=== PATIENT | female | born 1995 | race African-American/Black ===

== ENCOUNTER 2019-04-20 15:31 | Emergency (ER) | payer BC, MEDICAID ==
[~2019-04-20] VITALS: Ht 177.8 cm; Wt 68.0 kg
[~2019-04-20 15:31] MED LIST: BISM262T18 PO; LANS30CA54 PO
--- NOTE | 2019-04-20 15:55 | NUR ---
PT CAME IN TH ED C/O NAUSEA AND VOMITING X 1 WEEK. PT AAOX4, VSS, BREATHING EVEN AND UNLABORED W/ NO ACUTE DISTRESS NOTED. PT CONNECTED TO THE MONITOR.
--- NOTE | 2019-04-20 15:55 | NUR ---
BLOOD DRAWN AND SENT TO LAB.
[2019-04-20] MEDS ORDERED: ONDANSETRON HCL/PF 4 MG/2 ML VIAL IVP ONE (16:00)
[2019-04-20] MEDS ORDERED: IV NS 0.9% 1,000 ML BAG IV ONE (16:00)
[2019-04-20] MEDS ORDERED: ONDANSETRON HCL/PF 4 MG/2 ML VIAL ONE (16:03)
[2019-04-20 16:15] LABS: CALCIUM, SERUM 9.4 mg/dL (8.5-10.1); CREATININE 0.7 mg/dL (0.6-1.3); POTASSIUM 3.9 mmol/L (3.5-5.1)
[2019-04-20 16:23] LABS: ALBUMIN 4.5 g/dL (3.4-5.0); BILIRUBIN,DIRECT 0.2 mg/dL (0.0-0.2); BILIRUBIN,TOTAL 1.2 mg/dL (0.2-1.0); TOTAL PROTEIN, SERUM 8.3 g/dL (6.4-8.2)
[2019-04-20 16:25] LABS: BASOPHILS % (AUTO) 0.4 % (0.0-2.0); EOSINOPHILS % (AUTO) 2.3 % (0.0-6.0); HEMATOCRIT 42 % (33-45); HEMOGLOBIN 14.1 g/dL (11.5-14.8); LYMPHOCYTES # (AUTO) 1.7 /CMM (0.8-4.8); LYMPHOCYTES % (AUTO) 22.8 % (20.0-44.0); MEAN CORPUSCULAR HGB CONC 34 g/dl (31.0-36.0); MEAN CORPUSCULAR VOLUME 89 fL (82-100); MONOCYTES # (AUTO) 0.4 /CMM (0.1-1.30); MONOCYTES % (AUTO) 5.7 % (2.0-12.0); NEUTROPHILS # (AUTO) 5.2 /CMM (1.8-8.9); NEUTROPHILS % (AUTO) 68.8 % (43.0-81.0); PLATELET COUNT (AUTO) 283 /CMM (150-450); RED BLOOD CELL COUNT(AUTO) 4.77 MIL/uL (4.0-5.2); WHITE BLOOD COUNT (AUTO) 7.6 K/uL (4.3-11.0)
--- NOTE | 2019-04-20 16:30 | NUR ---
URINE COLLECTED AND SENT TO LAB
[2019-04-20 16:53] LABS: BILIRUBIN,URINE Negative (NEGATIVE); BLOOD, URINE Negative Ery/uL (NEGATIVE); COLOR,URINE Light yellow (YELLOW); KETONES,URINE 15 (NEGATIVE); LEUKOCYTE ESTERASE ,URINE Trace (NEGATIVE); NITRITE, URINE Negative (NEGATIVE); PROTEIN,URINE Negative (NEGATIVE); UGLUCOSE Negative (NEGATIVE); UROBILINOGEN,URINE 0.2 EU/dL (0.2)
[2019-04-20 16:57] LABS: APPEARANCE,URINE HAZY (CLEAR)
[2019-04-20 17:04] LABS: BACTERIA,URINE Many /HPF (None Seen); RBC,URINE 0-2 /HPF (0-2)
[2019-04-20 17:05] LABS: SQUAMOUS EPITHELIAL CELL,UR Many /HPF (None Seen)
[2019-04-20 17:32] VITALS: BP 125/81
--- NOTE | 2019-04-20 17:33 | NUR ---
Patient discharged to home in stable condition. Written and verbal after care instructions given. Patient verbalizes understanding of instruction.IV removed. Catheter intact and site benign. Pressure and 4x4 applied to site. No bleeding noted.
== END 2019-04-20 17:32 | disposition home or self-care (01) ==
LOC: ER 15:31
DX: R11.2 Nausea with vomiting, unspecified (principal); G89.29 Other chronic pain; Z88.1 Allergy status to other antibiotic agents
CPT/HCPCS: 36415; 76705; 80048; 80076; 81001; 83690; 84703; 85025; 87086; 96361; 96374; 99284; J2405; J7030; 81000-TC

== ENCOUNTER 2019-07-19 12:14 | Emergency (ER) | payer MEDICAID ==
[~2019-07-19] VITALS: Ht 180.3 cm; Wt 75.3 kg
[2019-07-19] MEDS ORDERED: ONDANSETRON HCL/PF 4 MG/2 ML VIAL IVP ONE (13:00)
[2019-07-19] MEDS ORDERED: KETOROLAC TROMETHAMINE INJ 30 MG/ML VIAL IV ONE (13:00)
[2019-07-19] MEDS ORDERED: IV NS 0.9% 1,000 ML BAG IV ONE (13:00)
[2019-07-19] MEDS ORDERED: KETOROLAC TROMETHAMINE INJ 30 MG/ML VIAL ONE (13:02)
[2019-07-19] MEDS ORDERED: ONDANSETRON HCL/PF 4 MG/2 ML VIAL ONE ×2 (13:02→14:10)
[2019-07-19 13:16] LABS: BASOPHILS % (AUTO) 0.3 % (0.0-2.0); EOSINOPHILS % (AUTO) 1.5 % (0.0-6.0); HEMATOCRIT 45 % (33-45); HEMOGLOBIN 14.7 g/dL (11.5-14.8); LYMPHOCYTES # (AUTO) 0.8 /CMM (0.8-4.8); LYMPHOCYTES % (AUTO) 10.2 % (20.0-44.0); MEAN CORPUSCULAR HGB CONC 33 g/dl (31.0-36.0); MEAN CORPUSCULAR VOLUME 91 fL (82-100); MONOCYTES # (AUTO) 0.4 /CMM (0.1-1.30); MONOCYTES % (AUTO) 4.5 % (2.0-12.0); NEUTROPHILS # (AUTO) 6.8 /CMM (1.8-8.9); NEUTROPHILS % (AUTO) 83.5 % (43.0-81.0); PLATELET COUNT (AUTO) 276 /CMM (150-450); RED BLOOD CELL COUNT(AUTO) 4.93 MIL/uL (4.0-5.2); WHITE BLOOD COUNT (AUTO) 8.1 K/uL (4.3-11.0)
[2019-07-19 13:17] LABS: APPEARANCE,URINE Clear (CLEAR); BILIRUBIN,URINE Negative (NEGATIVE); BLOOD, URINE Trace-lysed Ery/uL (NEGATIVE); COLOR,URINE Yellow (YELLOW); KETONES,URINE Negative (NEGATIVE); LEUKOCYTE ESTERASE ,URINE Negative (NEGATIVE); NITRITE, URINE Negative (NEGATIVE); PROTEIN,URINE 30 mg/dl (NEGATIVE); UGLUCOSE Negative (NEGATIVE); UROBILINOGEN,URINE 0.2 EU/dL (0.2)
[2019-07-19 13:19] LABS: PH,URINE >9.0 (5.0-8.0)
[2019-07-19 13:23] LABS: CALCIUM, SERUM 8.9 mg/dL (8.5-10.1); CREATININE 0.7 mg/dL (0.6-1.3); POTASSIUM 4.2 mmol/L (3.5-5.1)
[2019-07-19 13:29] LABS: ALBUMIN 4.2 g/dL (3.4-5.0); BACTERIA,URINE Few /HPF (None Seen); BILIRUBIN,DIRECT 0.1 mg/dL (0.0-0.2); BILIRUBIN,TOTAL 0.6 mg/dL (0.2-1.0); SQUAMOUS EPITHELIAL CELL,UR Few /HPF (None Seen); TOTAL PROTEIN, SERUM 8.1 g/dL (6.4-8.2); WBC,URINE 0-2 /HPF (0-3)
[2019-07-19] MEDS ORDERED: ONDANSETRON HCL/PF 4 MG/2 ML VIAL IV ONE (14:30)
[2019-07-19 15:00] VITALS: BP 123/78
== END 2019-07-19 15:02 | disposition home or self-care (01) ==
LOC: ER 12:14
DX: B34.9 Viral infection, unspecified (principal); F10.10 Alcohol abuse, uncomplicated; Y90.9 Presence of alcohol in blood, level not specified; Z88.1 Allergy status to other antibiotic agents; Z79.899 Other long term (current) drug therapy
CPT/HCPCS: 36415; 80048; 80076; 81001; 84703; 85025; 96374; 96375; 96376; 99283; J1885; J2405 ×2; J7030; 81000-TC

== ENCOUNTER 2019-07-29 11:32 | Emergency (ER) | payer MEDICAID ==
[~2019-07-29] VITALS: Ht 180.3 cm; Wt 68.0 kg
--- NOTE | 2019-07-29 12:15 | NUR ---
bib boyfriend 24 year old female, c/o nausea vomiting x 3 weeks, -diarrhea. alert nad oriented x3 breathing even and unlabored with no distress noted. skin intact and warm to touch. waiting to be seen by
[2019-07-29] MEDS ORDERED: ONDANSETRON HCL/PF 4 MG/2 ML VIAL IVP ONE (12:30)
[2019-07-29] MEDS ORDERED: IV NS 0.9% 1,000 ML BAG IV ONE (12:30)
[2019-07-29] MEDS ORDERED: METOCLOPRAMIDE HCL 10 MG/2 ML VIAL IV ONE (12:30)
[2019-07-29] MEDS ORDERED: diphenhydrAMINE HCL 50 MG/ML VIAL IV ONE (12:30)
[2019-07-29] MEDS ORDERED: METOCLOPRAMIDE HCL 10 MG/2 ML VIAL ONE (12:43)
[2019-07-29] MEDS ORDERED: ONDANSETRON HCL/PF 4 MG/2 ML VIAL ONE (12:43)
[2019-07-29 12:44] LABS: BASOPHILS % (AUTO) 0.1 % (0.0-2.0); EOSINOPHILS % (AUTO) 0.5 % (0.0-6.0); HEMATOCRIT 45 % (33-45); LYMPHOCYTES % (AUTO) 7.4 % (20.0-44.0); MEAN CORPUSCULAR HGB CONC 33 g/dl (31.0-36.0); MEAN CORPUSCULAR VOLUME 90 fL (82-100); MONOCYTES # (AUTO) 0.8 /CMM (0.1-1.30); MONOCYTES % (AUTO) 6.3 % (2.0-12.0); NEUTROPHILS # (AUTO) 11.1 /CMM (1.8-8.9); NEUTROPHILS % (AUTO) 85.7 % (43.0-81.0); PLATELET COUNT (AUTO) 320 /CMM (150-450); RED BLOOD CELL COUNT(AUTO) 5.03 MIL/uL (4.0-5.2); WHITE BLOOD COUNT (AUTO) 12.9 K/uL (4.3-11.0)
[2019-07-29] MEDS ORDERED: diphenhydrAMINE HCL 50 MG/ML VIAL ONE (12:44)
[2019-07-29 12:50] LABS: CALCIUM, SERUM 9.3 mg/dL (8.5-10.1); CREATININE 0.7 mg/dL (0.6-1.3); POTASSIUM 3.9 mmol/L (3.5-5.1)
[2019-07-29 13:11] LABS: APPEARANCE,URINE Clear (CLEAR); BILIRUBIN,URINE Negative (NEGATIVE); BLOOD, URINE Trace-intact Ery/uL (NEGATIVE); COLOR,URINE Yellow (YELLOW); KETONES,URINE Negative (NEGATIVE); LEUKOCYTE ESTERASE ,URINE Negative (NEGATIVE); NITRITE, URINE Negative (NEGATIVE); PROTEIN,URINE Negative (NEGATIVE); UGLUCOSE Negative (NEGATIVE); UROBILINOGEN,URINE 0.2 EU/dL (0.2)
[2019-07-29 13:12] LABS: BACTERIA,URINE Rare /HPF (None Seen); SQUAMOUS EPITHELIAL CELL,UR Rare /HPF (None Seen); WBC,URINE 0-2 /HPF (0-3)
--- NOTE | 2019-07-29 13:49 | NUR ---
Patient discharged to home in stable condition. Written and verbal after care instructions given. Patient verbalizes understanding of instruction. IV removed. Catheter intact and site benign. Pressure and 4x4 applied to site. No bleeding noted.
[2019-07-29 13:50] VITALS: BP 128/88
== END 2019-07-29 13:50 | disposition home or self-care (01) ==
LOC: ER 11:36
DX: R11.2 Nausea with vomiting, unspecified (principal); F12.90 Cannabis use, unspecified, uncomplicated; G89.29 Other chronic pain; Z88.1 Allergy status to other antibiotic agents; Z79.899 Other long term (current) drug therapy
CPT/HCPCS: 36415; 80048; 81001; 84703; 85025; 96361; 96374; 96375; 99283; J1200; J2405; J2765; J7030; 81000-TC

== ENCOUNTER 2021-10-29 14:20 | Emergency (ER) | payer MEDICAID ==
[~2021-10-29] VITALS: Ht 180.3 cm; Wt 68.0 kg
--- NOTE | 2021-10-29 14:27 | NUR ---
BIB SELF C/O VOMITING STARTED TODAY. "I VOMITED MORE THAN 20 TIMES TODAY". PLACED COMFORTABLY IN BED. VITALS CHECKED.
[2021-10-29] MEDS ORDERED: MULT-447 PO (14:29)
--- NOTE | 2021-10-29 14:50 | NUR ---
IV CANNULA G20 INSERTED ON LEFT AC. BLOOD DRAWN AND SENT TO LAB
[2021-10-29] MEDS ORDERED: IV NS 0.9% 1,000 ML BAG IV ONE (15:00)
[2021-10-29] MEDS ORDERED: ONDANSETRON HCL/PF 4 MG/2 ML VIAL IVP ONE (15:00)
[2021-10-29] MEDS ORDERED: ONDANSETRON HCL/PF 4 MG/2 ML VIAL ONE (15:04)
--- NOTE | 2021-10-29 15:09 | NUR ---
URINE SAMPLE SENT TO LAB
--- NOTE | 2021-10-29 15:13 | NUR ---
MADE AWARE ABOUT PT'S PAIN. PATIENT SIGNED WAIVER THAT SHE IS NOT .
[2021-10-29 15:23] LABS: BASOPHILS % (AUTO) 0.2 % (0.0-2.0); HEMATOCRIT 43 % (33-45); HEMOGLOBIN 13.9 g/dL (11.5-14.8); LYMPHOCYTES # (AUTO) 0.9 K/uL (0.8-4.8); LYMPHOCYTES % (AUTO) 6.9 % (20.0-44.0); MEAN CORPUSCULAR HGB CONC 32 g/dl (31.0-36.0); MEAN CORPUSCULAR VOLUME 89 fL (82-100); MONOCYTES # (AUTO) 0.4 K/uL (0.1-1.30); MONOCYTES % (AUTO) 3.3 % (2.0-12.0); NEUTROPHILS % (AUTO) 88.6 % (43.0-81.0); PLATELET COUNT (AUTO) 313 K/uL (150-450); RED BLOOD CELL COUNT(AUTO) 4.84 MIL/uL (4.0-5.2); WHITE BLOOD COUNT (AUTO) 13.6 K/uL (4.3-11.0)
[2021-10-29 15:37] LABS: BILIRUBIN,URINE NEGATIVE (NEGATIVE); COLOR,URINE YELLOW (YELLOW); LEUKOCYTE ESTERASE ,URINE NEGATIVE (NEGATIVE); NITRITE, URINE NEGATIVE (NEGATIVE); PROTEIN,URINE TRACE mg/dl (NEGATIVE); UGLUCOSE NEGATIVE (NEGATIVE); UROBILINOGEN,URINE 0.2 EU/dL (0.2)
[2021-10-29 15:43] LABS: CALCIUM, SERUM 9.3 mg/dL (8.5-10.1); CREATININE 0.6 mg/dL (0.6-1.3); POTASSIUM 4.2 mmol/L (3.5-5.1)
[2021-10-29 15:43] LABS: PH,URINE >8.5 (5.0-8.0)
[2021-10-29 15:46] LABS: BACTERIA,URINE RARE /HPF (None Seen); RBC,URINE 0-2 /HPF (0-2); WBC,URINE 0-2 /HPF (0-3)
[2021-10-29 15:47] LABS: MUCUS,URINE Few /LPF (None Seen)
[2021-10-29 15:49] LABS: ALBUMIN 4.1 g/dL (3.4-5.0); BILIRUBIN,DIRECT 0.1 mg/dL (0.0-0.2); BILIRUBIN,TOTAL 0.5 mg/dL (0.2-1.0); TOTAL PROTEIN, SERUM 8.2 g/dL (6.4-8.2)
[2021-10-29] MEDS ORDERED: ONDA4TAB5 PO (16:22)
[2021-10-29] MEDS ORDERED: ALBU8.5H8 INH (16:22)
[2021-10-29 17:07] VITALS: BP 114/79
--- NOTE | 2021-10-29 17:07 | NUR ---
Patient discharged to home in stable condition. Written and verbal after care instructions given. Patient verbalizes understanding of instruction.
--- NOTE | 2021-10-29 17:07 | NUR ---
iv cannula removed
== END 2021-10-29 17:08 | disposition home or self-care (01) ==
LOC: ER 14:22
DX: R11.2 Nausea with vomiting, unspecified (principal); J45.909 Unspecified asthma, uncomplicated; G89.29 Other chronic pain; F17.200 Nicotine dependence, unspecified, uncomplicated; Z88.0 Allergy status to penicillin; Z79.899 Other long term (current) drug therapy
CPT/HCPCS: 36415; 80048; 80076; 80307; 81001; 83690; 84703; 85025; 96361; 96374; 99283; J2405; J7030